=== PATIENT | male | born 1970 | race African-American/Black ===

== ENCOUNTER 2024-04-06 17:15 | Emergency (ER) | payer SELFPAY ==
[~2024-04-06] VITALS: Ht 170.2 cm; Wt 113.0 kg
[2024-04-06 17:29] VITALS: TEMP 36.7; O2SAT 99
[2024-04-06 18:12] LABS: BASOPHILS % 0.3 % (0.0-2.0); EOSINOPHILS % 1.1 % (0.0-5.0); HEMATOCRIT. 35.4 % (42.0-52.0); HEMOGLOBIN. 11.5 g/dL (14.0-18.0); LYMPHOCYTES % 26.3 % (20.0-50.0); MEAN CORPUSCULAR HEMOGLOBIN 29.4 pg (28.0-32.0); MEAN CORPUSCULAR HGB CONC 32.5 g/dL (31.0-37.0); MEAN CORPUSCULAR VOLUME 90.4 fL (80.0-94.0); MEAN PLATELET VOLUME 8.7 fl (7.4-10.4); MONOCYTES % 13.2 % (2.0-8.0); NEUTROPHILS % 59.1 % (40.0-76.0); PLATELET 232 x1000/uL (130-400); RED BLOOD CELL COUNT 3.91 mill/uL (4.7-6.1); WHITE BLOOD COUNT 9.6 x1000/uL (4.5-11.0)
[2024-04-06 18:21] LABS: CHLORIDE 103 mEq/L (98-107); POTASSIUM 3.6 mEq/L (3.5-5.1); SODIUM 141 mEq/L (136-145)
[2024-04-06 18:22] LABS: CALCIUM 9.3 mg/dL (8.7-10.4); CARBON DIOXIDE 32 mEq/L (21-32)
[2024-04-06 18:27] LABS: CREATININE 1.5 mg/dL (0.6-1.3); GLUCOSE 78 mg/dL (70-105); TROPONIN I HIGH SENSITIVITY 33 ng/L (3.0-53); UREA NITROGEN BLOOD 18 mg/dL (9-23)
[2024-04-06] MEDS ORDERED: AZIT1PAC9 MT (19:36)
[2024-04-06 19:52] VITALS: BP 174/104; PULSE 83; RESP 16; O2SAT 98
== END 2024-04-06 19:52 | disposition home or self-care (01) ==
LOC: ER 17:15
DX: J18.9 Pneumonia, unspecified organism (principal); I10 Essential (primary) hypertension; Z79.899 Other long term (current) drug therapy
CPT/HCPCS: 36415; 71045; 80048; 84484; 85025; 93005; 99285